=== PATIENT | female | born 1965 | race Caucasian/White ===

== ENCOUNTER 2016-05-27 16:22 | Emergency (ER) | payer OTHER ==
[2016-05-27 17:28] VITALS: BP 150/101; PULSE 68; RESP 16; TEMP 98.8; O2SAT 92
--- NOTE | 2016-05-27 18:04 | UCPHY ---
H & P Time Seen by Provider: 05/27/16 17:56 Patient Type: Established HPI/ROS: HPI: 51-year-old female presents to urgent care with chief concern sore throat , bilateral ear pain, nausea. Reports associated headache, chills, and intermittent nausea. Denies dizziness, dysphagia, shortness of breath, chest pain, abdominal pain, vomiting, diarrhea. No rash. No cough or nasal congestion. Several of her children are currently positive for strep pharyngitis. 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 ROS:10 point review of systems is negative other than as stated in HPI Smoking Status: Never smoked Physical Exam: Vital signs reviewed by me General: Awake, alert, calm, cooperative. No acute distress. Head: Normalocephalic. Atraumatic. EENT: PERRLA. EOMI. No pallor or injection. Anicteric. No nystagmus. No injection. TMs intact bilaterally with normal landmarks. No rhinnorhea, nasal passages clear. Oropharynx moderate erythema, no exudates or lesions. Tonsils 2 + bilaterally, no exudates. Neck: Supple, nontender. Bilateral anterior cervical lymphadenopathy. Full range of motion. No meningismus. Respiratory: Breathing unlabored. Breath sounds equal bilaterally and clear to auscultation. No adventitious sounds. CV: Chest nontender, atraumatic. Heart rate regular. No murmur, distal pulses 2+ bilaterally. Brisk cap refill all extremities. GI: Abdomen soft, nontender. Bowel sounds normoactive and positive x4 quadrants. Neuro: Alert. Oriented x 3. Speech clear. Sensation intact all extremities. Skin: Skin warm, dry, intact. No rashes. Skin turgor normal. Extremities: Full range of motion in all 4 extremities. Strength 5+ all extremities. Constitutional: Initial Vital Signs Temperature (C) 37.1 C 05/27/16 17:24 Heart Rate 68 05/27/16 17:24 Respiratory Rate 16 05/27/16 17:24 Blood Pressure 150/101 H 05/27/16 17:24 O2 Sat (%) 92 05/27/16 17:24 O2 Delivery Mode Room Air Allergies/Adverse Reactions: cephalexin monohydrate [From Keflex] Allergy (Verified 05/27/16 17:28) Cephalosporins Allergy (Verified 05/27/16 17:28) nitrofurantoin [From Macrobid] Allergy (Verified 05/27/16 17:28) nitrofurantoin macrocrystalline [From Macrobid] Allergy (Verified 05/27/16 17:28 ) Penicillins Allergy (Verified 05/27/16 17:28) tetanus and diphtheria toxoids [tetanus & diphtheria toxoids] Allergy (Verified 05/27/16 17:28) Home Medications: Medication Instructions Recorded CLONAZEPAM 01/03/15 Dicyclomine 01/03/15 Hydrocodon-Acetaminoph 2.5-325 01/03/15 Toprol Xl 100 mg (RX) 01/03/15 Zoloft 100mg (*) 03/15/16 Azithromycin [Zithromax 250 mg 250 mg PO DAILY #6 tab 05/27/16 tab(RX)] Ondansetron Odt [Zofran Odt 4 mg 4 mg PO Q4 PRN #5 tab 05/27/16 (*)] Medical Decision Making ED Course/Re-evaluation: Rapid strep negative. As this patient's children are currently positive for strep pharyngitis and her symptoms are consistent with strep pharyngitis, she will be treated. She has no dysphagia. Vitals are stable. Differential Diagnosis: Viral pharyngitis, strep pharyngitis, other viral URI - Data Points Laboratory Results: 05/27/16 05/27/16 Unknown 17:30 Group A Strep Screen NEGATIVE (NEGATIVE) Group A Strep DNA Pending Departure - Departure Disposition: Home, Routine, Self-Care Clinical Impression: Pharyngitis Qualifiers: Qualifier Code: (J02.9) Acute pharyngitis, unspecified Condition: Good Instructions: Pharyngitis (ED) Additional Instructions: Plan: As discussed, your rapid strep was negative. Strep DNA is pending. Since your Children's have strep pharyngitis and ear symptoms are consistent with strep pharyngitis, we will begin antibiotic. As you have a type 1 hypersensitivity to penicillin, we will use Zithromax antibiotic as prescribed Follow up with primary care upon completion of antibiotic Drink plenty of fluids 1 Zofran as needed every 4-6 hours for nausea You may use 600 mg of ibuprofen every 6 hours for fever, inflammation, or pain. Always take ibuprofen with food and stay well hydrated while taking. Do not exceed the maximum allowable dose in a 24 hour period which is 2400 mg. You may use 1000mg of Tylenol every 8 hours. This may be staggered with the ibuprofen. Do not exceed the maximum dose in a 24 hour period which is 3 GM or 3000 mg. If he developed difficulty swallowing, vomiting, or other concerning symptoms go to emergency room [place]errals: [place],. [Primary Care Provider] - As per Instructions [facility] [Outside] - As per Instructions Prescriptions: Azithromycin [Zithromax 250 mg tab(RX)] 250 mg PO DAILY #6 tab Ondansetron Odt [Zofran Odt 4 mg (*)] 4 mg PO Q4 PRN #5 tab PRN Reason: nausea, vomiting - PQRS PQRS Measurement: Not applicable
== END 2016-05-27 18:15 | disposition home or self-care (01) ==
LOC: CED 16:22
DX: J02.9 Acute pharyngitis, unspecified (principal); Z88.0 Allergy status to penicillin
CPT/HCPCS: 87880-PO; 99214-PO; G0463-PO

== ENCOUNTER → 2018-03-04 | Outpatient (CLI) | payer OTHER | LOC: CIMAGING 10:21 | PROVIDERS: ATTEND Internal Medicine Gastroenterology | DX: K76.0 Fatty (change of) liver, not elsewhere classified (principal); K83.9 Disease of biliary tract, unspecified | CPT/HCPCS: 76705-PO ==

== ENCOUNTER → 2018-03-14 | Outpatient (CLI) | payer OTHER | LOC: FIMAGING 09:14 | PROVIDERS: ATTEND Internal Medicine Gastroenterology | DX: K83.9 Disease of biliary tract, unspecified (principal); K76.0 Fatty (change of) liver, not elsewhere classified; R16.0 Hepatomegaly, not elsewhere classified; K59.00 Constipation, unspecified; K57.30 Diverticulosis of large intestine without perforation or abscess without bleeding; M41.85 Other forms of scoliosis, thoracolumbar region; Z90.49 Acquired absence of other specified parts of digestive tract ==

== ENCOUNTER → 2018-07-16 | Outpatient (CLI) | payer OTHER | LOC: EMCIMAGING 08:04 | PROVIDERS: ATTEND Physician Assistant Medical | DX: R91.1 Solitary pulmonary nodule (principal); N63.0 Unspecified lump in unspecified breast | CPT/HCPCS: 71250-PN; 77066-PN ==